=== PATIENT | female | born 1995 | race Caucasian/White ===

== ENCOUNTER 2023-03-18 08:00 | Outpatient (RCR) | payer MEDICAID, SELFPAY ==
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
--- NOTE | 2023-03-18 11:15 | BH.SGPN.GN ---
Behaviors/Verbalizations/Mental Status: [] Client alert and oriented, casually dressed and groomed. Eye contact good. Motor activity appropriate. Speech within normal limits. Affect congruent, mood depressed. Thoughts linear, logical, no signs of hallucinations or delusions. Client Response/Progress/Benefit: [] Client responded well to session, engaged and taking notes throughout. Worked with group to connect components of the experiential activity with characteristics of healthy and unhealthy relationships. Attentive during psychoeducation about characteristics of healthy, unhealthy, and abusive relationships. Client stated that within the relationship with her mother she does well with honesty and communication. Client reported an area she would like to work on creating healthier boundaries to prevent aspects of their strained relationship from effecting other relationships.. Appeared to benefit from identifying the current healthy relationship attributes and an area client wants to work on to build healthier relationships. Client to continue IOP to increase healthy coping skills, stabilize mood, and prevent decompensation. Narrative Note: []
[2023-03-18 11:28] VITALS: BP 144/88; PULSE 102
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
--- NOTE | 2023-03-18 12:31 | BH.DR.ITP ---
Initial Treatment Plan Patient Information Visit Information: ADMISSION DATE: EXPECTED LOS: 4-6 weeks Problems/Symptoms Problem #1:: Depression Symptom:: Sadness, hopelessness, guilt, worthlessness, decreased concentration, low energy, passive thoughts of , passive, fleeting suicidal ideation Problem #2:: Anxiety Symptom:: Worry, rumination, avoidance
--- NOTE | 2023-03-18 15:09 | BH.COMM_ITS ---
Communication Note Communication with Client Communication Note: Met with patient. Completed admission paperwork. Completed [place] Suicide Severity Rating Scale and Risk factors/protective factors assessment. Per C-SSRS pt is considered high risk for suicide. Pt was hospitalized about 2 weeks ago due to an aborted suicide attempt a little over 4 weeks ago. Pt shared she had stood on a chair and put an extension cord around her neck, but texted a support person and stopped herself from attempting. Pt stated this was prompted by a relationship issue. Pt reports she estimates 5 to 10 suicide attempts throughout her life. Pt states her most recent attempt was in April 2022 in which she drank alcohol and cut herself numerous times. Pt states in the last month she has had thoughts of suicide, but denies having plan or intention. Pt reports she does not have access to firearms. Pt identifies reasons to living which she identifies her family, friends, and cat. Pt is future oriented. Consulted with Dr. Peña with plan to admit to [facility] with dx of F33.2.
--- NOTE | 2023-03-19 07:30 | BH.COMM ---
Communication Note Communication with Client Communication Note: Cancelled IOP today due to car issues
--- NOTE | 2023-03-24 07:30 | BH.COMM ---
Communication Note Communication with Client Communication Note: Cancelled IOP again today reporting conflict. This pt's 2nd cancellation in a row.
--- NOTE | 2023-03-25 09:00 | BH.SGPN.GN ---
Behaviors/Verbalizations/Mental Status: [Patient was alert and oriented, appropriately dressed and groomed. Eye contact was good, motor activity normal, speech within normal limits. Affect flat, mood content. Thoughts linear, logical, no signs of hallucinations or delusions. Reviewed Patients symptom tracker and the patient reports moderate in depressed mood, anxiety/panic attacks, and low in thoughts of suicide. The patient does not report symptoms in self-harm urges or risk of suicide. ] Client Response/Progress/Benefit: [Patient was engaged and open to the discussion. Patient reported her mood to be ?Apathetic?. Patients first win is that she got a new job yesterday at [employer]. She shared since she has some car troubles, this will relieve from stress because she will be able to walk to this job since it is only a couple of minutes from her home. Patient was unable to identify a second win today. Patients stressor is the car issues that she is expecting, and she is not sleeping very well. Patient expressed some frustration with her ?constant state of apathy?. Patient was interactive and respectful with other group members about their mental wins and stressors. Patient benefited from the discussion by listening to feedback and giving input on her peer?s stressors and mental health wins. Patient will continue with IOP treatment to help develop healthy skills, promote mood stability, and improve distress tolerance. ] Narrative Note: []
--- NOTE | 2023-03-25 10:00 | BH.SGPN.GN ---
Behaviors/Verbalizations/Mental Status: [] Client alert and oriented, casually dressed and groomed. Eye contact good. Motor activity appropriate. Speech within normal limits. Affect congruent, mood euthymic. Thoughts linear, logical, no signs of hallucinations or delusions. Client Response/Progress/Benefit: []Client responded well to session AEB sharing and listening attentively to others. Group provided examples of benefits of having social support, including: ability to process emotions with, security, and community. Client also participated in group discussion regarding the barriers to accessing support including personal examples like: self sabotage, lack of communication, and over using certain supports. Client participated in experiential activity illustrating the impact communication, boundaries, and patience play in creating healthy support systems. Client presented frustrated with group activity, but utilized skills to overcome those feelings. Client appeared to benefit from increased knowledge of the benefits of social support and greater self-awareness. Will continue IOP tx to prevent decompensation and improve overall functioning. Narrative Note: []
--- NOTE | 2023-03-25 11:00 | BH.SGPN.GN ---
Behaviors/Verbalizations/Mental Status: [] Client alert and oriented, casually dressed and groomed. Eye contact good. Motor activity appropriate. Speech within normal limits. Affect congruent, mood euthymic. Thoughts linear, logical, no signs of hallucinations or delusions. Client Response/Progress/Benefit: [] Client was an active participant throughout AEB contributing to discussion, providing personal examples, and taking notes. Client processed emotions felt in the activity and how they coped in the moment. Client provided input during discussion on the types of support our supports can provide. Client able to identify current support system and barriers that get in the way of using supports by drawing out their own support net. Client reported after identifying what type of supports they receive; they gained awareness that they could benefit from more social supports. Client identified steps to achieve this by following through and pushing self more. Client shared increasing social supports will help them have more balanced support. Client seemed to benefit from identifying the type of support client needs to work on improving. Client recommended to continue IOP tx to reduce isolation, and increase emotional regulation skills. Narrative Note: []
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
--- NOTE | 2023-03-25 14:45 | BH.MTP ---
Master Treatment Plan Patient Information Program Physician:: Whitney Peña MD Primary Therapist:: Tae Baer [facility] Psychiatric Diagnoses Psychiatric Diagnoses:: 1. Major depressive disorder, recurrent, severe without psychosis 2. Generalized anxiety disorder 3. PTSD 4. Strong cluster B traits, rule out borderline personality disorder 5. Bulimia nervosa with purging by emesis Diagnosis Code(s):: F33.2; F41.1 Estimated LOS Estimated LOS (in weeks):: 6 Problem/Goal #1 Problem/Goal #1 Stated Goal:: Client will reduce depressive symptoms, worthlessness, lack of concentration, passive thoughts of , and negative core beliefs associated with major depressive disorder AEB self-report and reduction of score of DSM5 outcome scales of depression and SI. Description of Barriers: Hx of non-compliance with treatment, difficulty maintaining a routine, struggles with waking up in the AM, isolation/avoidant behaviors. Functional Impact: Mental health has impacted pt's ability to maintain consistent employment. Lack of energy and motivation have also impacted relationships, work, and social life. Recent psychiatric admission for depression and SI. Goal Relevant Strengths/Supports: Resilient. Objectives Objective #1: Stated Objective: Client will work with therapist to develop a ?crisis plan? which includes emergency telephone numbers, internal/external coping strategies for SI/overwhelming emotions, lists of supports, warning signs, positive aspects of life, and motivations. Interventions: Through individual and group counseling pt will learn and practice various internal and external coping skills for emotional dysregulation. Therapist will provide patient with safety plan worksheet (if he desires) and work with pt. to develop individualized plan which includes internal coping skills, external coping skills, support, and crisis numbers. Discharge Criteria: Complete safety plan and be able to verbalize plan to therapist (if She chooses not to complete worksheet). Target Date: 04/29/23 Review Date: 04/08/23 Objective #2: Stated Objective: Client will identify 2-3 cognitive distortions and mistaken beliefs that lead to rumination and learn 2-3 ways to manage these thoughts to reduce symptoms. Interventions: Through individual and group counseling will provide education on the most common cognitive distortions and teach client the connection between thoughts, emotions, and feelings. Therapist will use CBT and DBT techniques to help client gain awareness of thinking errors and learn how to more effectively handle negative thoughts. Will provide education on mistaken beliefs, have client complete questionnaire to identify mistaken beliefs, and identify strategies to challenge. Discharge Criteria: Able to identify common cognitive distortions and mistake beliefs and 2-3 strategies to reframe, challenge, or cope. Target Date: 04/29/23 Review Date: 04/08/23 Problem/Goal #2 Problem/Goal #2 Stated Goal:: Client will reduce overall frequency, intensity, and duration of anxiety to improve functioning AEB self-report and reduction of scores on anxiety and overall on the DSM5 outcomes. Description of Barriers: Hx of non-compliance with treatment, difficulty maintaining a routine, struggles with waking up in the AM, isolation/avoidant behaviors. Functional Impact: Mental health has impacted pt's ability to maintain consistent employment. Lack of energy and motivation have also impacted relationships, work, and social life. Anxiety results in avoidant and isolative behaviors. Recent psychiatric admission for depression and SI. Goal Relevant Strengths/Supports: resilient Objectives Objective #1: Stated Objective: Client will learn and implement 2-3 calming skills and develop a concrete anxiety management plan to reduce overall anxiety and manage anxiety Interventions: Through individual and group counseling will teach client various calming and mindfulness strategies to promote emotional regulation and reduction of anxiety. Therapist will encourage client to implement healthy coping skills on a regular basis. Once skills have been learned pt will create a concrete anxiety management plan which she can refer to help cope with anxiety in the moment. Discharge Criteria: She will be able to identify 3 calming skills and have create a anxiety management plan. Target Date: 04/29/23 Review Date: 04/08/23
--- NOTE | 2023-03-26 10:58 | BH.COMM ---
Communication Note Communication with Client Communication Note: no call / no show this AM. Pt has cancelled or no showed 4 of the last 6 IOP sessions.
--- NOTE | 2023-04-01 09:21 | BH.DS ---
Discharge Summary Demographics Date of Admission:: 03/18/23 Discharge Date: 04/01/23 Presenting Problems at Admission:: Pt is a 27 year old female with dx of MDD, recurrent, severe, w/o psychosis; LUIZA, PTSD, and Bulimia Nervosa. Pt also reports hx of ADHD. Referred to [facility] level of care by her social services aide through her insurance company due to recent psychiatric hospitalization for aborted suicide attempt. Hx of four previous psychiatric admissions with most recent at [facility] in mind February 2023. Pt reports that prior to the admission she had tied an extension cord around her neck with plan to suffocate herself. She changed her mind and reached out to a friend. Worsening depression for the past several months. No specific trigger however note relationship issues. Pt report low episodes throughout her life which lead to wanting to . Currently reports psychosocial stressors mainly around finances and employment. Struggling to find consistent employment (6-7 jobs in 2022) due to mental health struggles. Endorses increased sleep, erratic appetite, low energy, hopelessness, worthlessness, irritability, and isolation. Denies any distinct manic episodes. During assessment denies active suicidal ideations, plan, or intent. Hx of 5-10 suicide attempts. Long-standing passive thoughts of and survival ambivalence. Isolation and avoidant behaviors. Reports improvement since her hospitalization which she attributes to starting the medication Lamictal. Denies HI or psychosis. Daily cannabis use. Family hx of addiction, depression, and anxiety. Currently lives with her BF. Linked with building operator however no individual counseling. Discharge Diagnoses:: 1. Major depressive disorder, recurrent, severe without psychosis 2. Generalized anxiety disorder 3. PTSD 4. Strong cluster B traits, rule out borderline personality disorder 5. Bulimia nervosa with purging by emesis Reason for Discharge:: Inconsistent attendance. Pt either cancelled or no showed for 6 of her 8 scheduled IOP sessions. Therapist left several messages for patient to discuss obstacles and concerns, however no response. Pt noted on 03/25/23 that she obtained a job so this may have impacted her attendance as well. Pt will be discharged for lack of participation. Treatment Progress During Treatment & Response: No progress noted. Pt only attended 2 IOP days. Issues Still to be Addressed:: Anxiety, trauma, depression, irritability, limited coping skills, stress management, isolation, avoidance, fleeting suicidal thoughts. Discharge Recommendations/Instructions:: Unable to connect with patient to discuss discharge recommendations. Plan would be to follow up with her outpatient building operator at [facility] [place]. Discharge Handout
== END 2023-04-01 09:35 | disposition home or self-care (01) ==
LOC: BHIOP 08:00
PROVIDERS: Referring Provider Psychiatry & Neurology Psychiatry; Visit Provider Psychiatry & Neurology Psychiatry
DX: F33.2 Major depressive disorder, recurrent severe without psychotic features (principal); F41.1 Generalized anxiety disorder; F43.10 Post-traumatic stress disorder, unspecified; F50.2 Bulimia nervosa
CPT/HCPCS: 90792; H2012; H2020; S9480; T1002; 90834